=== PATIENT | female | born 1970 | race Caucasian/White ===

== ENCOUNTER 2016-05-30 23:16 | Emergency (ER) | payer OTHER ==
[~2016-05-30] VITALS: Ht 160 cm; Wt 123.6 kg
[~2016-05-30 23:16] MED LIST: CLEOCIN300 MG PO; DELTASONE20 M1 PO; HYDROCODON-ACE1 EAC7 PO; LEVAQUIN500 MG PO; NICODERM CQ1 EAC2 TD; OXYCODONE HCL5 MG PO; PANTOPRAZOLE SO40 MG PO; PERCOCET 5/31 TABLET PO; PROTONIX40 MG PO; ZANTAC150 MG PO
[2016-05-31] MEDS ORDERED: AMOXICILLIN875 MG PO (00:45)
[2016-05-31] MEDS ORDERED: NORCO 5/3251 TABLET PO (00:45)
[2016-05-31 00:52] VITALS: BP 147/87
== END 2016-05-31 00:53 | disposition home or self-care (01) ==
LOC: EME 23:16 → EXP 23:16
DX: K08.89 Other specified disorders of teeth and supporting structures (principal)
CPT/HCPCS: 99281; 99283

== ENCOUNTER 2016-08-02 23:59 | Emergency (ER) | payer OTHER ==
[~2016-08-02] VITALS: Ht 162.6 cm; Wt 116.8 kg
[~2016-08-02 23:59] MED LIST changes: +AMOXICILLIN875 MG PO; +NORCO 5/3251 TABLET PO
[2016-08-03 01:07] LABS: HEMATOCRIT 43.9 % (36.0-46.0); MCH 26.2 PG (29.0-34.0); MCHC 32.1 G/DL (30.0-36.0); MCV 81.6 FL (83-99); RBC DIS.WIDTH-CV 15.3 % (11.8-14.6); RBC DIS.WIDTH-SD 45.4 % (39-53); RED BLOOD COUNT 5.38 M/uL (3.80-5.20); WHITE BLOOD COUNT 11.7 K/uL (4.1-10.2)
[2016-08-03 01:16] LABS: CHLORIDE 96 mEq/L (99-109); POTASSIUM 3.8 mEq/L (3.7-5.4); SODIUM 134 mEq/L (136-147)
[2016-08-03 01:18] LABS: GLUCOSE 204 mg/dL (70-99)
[2016-08-03 01:19] LABS: ANION GAP 13 MEQ/L (2-14)
[2016-08-03 01:20] LABS: TOTAL BILIRUBIN 0.6 mg/dL (0.0-1.0)
[2016-08-03 01:21] LABS: ALKALINE PHOSPHATASE 105 IU/L (3-129)
[2016-08-03 01:22] LABS: GFR ESTIMATE (CALCULATED) > 59 mL/min/
[2016-08-03 01:23] LABS: UREA NITROGEN (BUN) 9 mg/dL (9-23)
[2016-08-03 01:30] LABS: QUANTITATIVE HCG < 4.0 MIU/ML
[2016-08-03 02:09] LABS: PLAT.SUFFICIENCY ADEQUATE; PLATELET CLUMPS PRESENT - PLATELET COUNT APPEARS ADQ.; PLATELET COUNT UNABLE TO REPORT K/uL (156-360)
[2016-08-03 03:37] LABS: ADD MIUA? YES; BILIRUBIN NEGATIVE; BLOOD SMALL; COLOR STRAW ((YELLOW)); GLUCOSE (STRIP) NEGATIVE; KETONES NEGATIVE; LEUKOCYTES TRACE; NITRITE NEGATIVE; PROTEIN (STRIP) NEGATIVE; SPECIFIC GRAVITY 1.005 (1.000-1.030); UROBILINOGEN 0.2 MG/DL (0.2-1.0)
[2016-08-03 03:40] LABS: BACTERIA NONE SEEN /HPF; EPITHELIAL CELLS 1+ /HPF; MUCUS TRACE /LPF; RED BLOOD CELLS 0-5 /HPF (0-5); UCUL ADDED? NO; WHITE BLOOD CELLS 0-5 /HPF (0-5)
[2016-08-03] MEDS ORDERED: FLAGYL500 MG PO (05:56)
[2016-08-03] MEDS ORDERED: CIPRO500 MG PO (05:56)
[2016-08-03] MEDS ORDERED: TYLENOL WITH C1 EACH PO (05:56)
[2016-08-03] MEDS ORDERED: ZOFRAN4 MG PO (06:00)
[2016-08-03 06:17] VITALS: BP 126/56
== END 2016-08-03 06:20 | disposition home or self-care (01) ==
LOC: EME 23:59
DX: R10.9 Unspecified abdominal pain (principal); J44.9 Chronic obstructive pulmonary disease, unspecified; K21.9 Gastro-esophageal reflux disease without esophagitis; F17.200 Nicotine dependence, unspecified, uncomplicated
CPT/HCPCS: 74176; 80053; 81003; 84702; 85027; 99281; 99284; J2405; J7030

== ENCOUNTER 2017-04-13 03:25 | Emergency (ER) | payer OTHER ==
[~2017-04-13] VITALS: Ht 162.6 cm; Wt 116.4 kg
[~2017-04-13 03:25] MED LIST changes: +CIPRO500 MG PO; +FLAGYL500 MG PO; +TYLENOL WITH C1 EACH PO; +ZOFRAN4 MG PO
[2017-04-13] MEDS ORDERED: VALIUM5 MG PO (05:43)
[2017-04-13] MEDS ORDERED: MEDROL DOSEPAK4 MG PO (05:43)
[2017-04-13] MEDS ORDERED: PERCOCET 5/31 TABLET PO (05:43)
[2017-04-13 06:17] VITALS: BP 121/53
== END 2017-04-13 06:18 | disposition home or self-care (01) ==
LOC: EME 03:25
DX: M54.12 Radiculopathy, cervical region (principal); R51 Headache; E11.9 Type 2 diabetes mellitus without complications; J44.9 Chronic obstructive pulmonary disease, unspecified; K21.9 Gastro-esophageal reflux disease without esophagitis; F17.200 Nicotine dependence, unspecified, uncomplicated; G47.33 Obstructive sleep apnea (adult) (pediatric); F32.9 Major depressive disorder, single episode, unspecified
CPT/HCPCS: 70450; 72125; 99281; 99284; J1885

== ENCOUNTER 2017-09-10 12:32 | Emergency (ER) | payer OTHER ==
[~2017-09-10] VITALS: Ht 162.6 cm; Wt 117.9 kg
[~2017-09-10 12:32] MED LIST changes: +MEDROL DOSEPAK4 MG PO; +VALIUM5 MG PO
[2017-09-10] MEDS ORDERED: PREDNISONE10 MG PO (15:24)
[2017-09-10] MEDS ORDERED: PERCOCET 5/31 TABLET PO (15:24)
[2017-09-10] MEDS ORDERED: VALIUM5 MG PO (15:24)
[2017-09-10 15:49] VITALS: BP 157/98
== END 2017-09-10 15:50 | disposition home or self-care (01) ==
LOC: EME 12:32
DX: M54.12 Radiculopathy, cervical region (principal); F17.200 Nicotine dependence, unspecified, uncomplicated